=== PATIENT | male | born 1985 | race Caucasian/White ===

== ENCOUNTER 2019-03-08 23:29 | Emergency (ER) | payer OTHER ==
[2019-03-09] MEDS ORDERED: predniSONE 20 MG Tab PO ONE (00:28)
[2019-03-09] MEDS ORDERED: Naproxen 500 MG Tab PO ONE (00:28)
[2019-03-09] MEDS ORDERED: traMADol 50 MG Tab PO ONE (00:28)
[2019-03-09] MEDS ORDERED: Acetaminophen 325 MG Tab PO ONE (00:28)
--- NOTE | 2019-03-09 00:31 | EDM.PDOC ---
ED HPI GENERAL MEDICAL PROBLEM - General Chief Complaint: Back Pain or Injury Stated Complaint: RIGHT SIDE PAINFUL-HARD TO MOVE Time Seen by Provider: 03/09/19 00:04 Source of Information: Reports: Patient, RN Notes Reviewed - History of Present Illness INITIAL COMMENTS - FREE TEXT/NARRATIVE: 33-year-old male comes in with right neck and shoulder discomfort, he states this started yesterday and has gotten much worse this afternoon and evening. Not aware of any particular injury. He has never had anything of this nature before. The pain starts at the right base of his neck radiates to the right shoulder or right upper back worse with certain types of motion of his neck and arm. No fever or chills. No weakness numbness or tingling. Pain is mildly worse with deep inspiration. He has had some mild cough cold symptoms for the last several days. Right Upper Shoulder Pain Score (Numeric/FACES): 8 - Related Data Allergies Allergy/AdvReac Type Severity Reaction Status Date / Time No Known Allergies Allergy Verified 03/08/19 23:43 Home Meds: Home Meds Naproxen [Naprosyn] 500 mg PO Q12HR #14 tab 03/09/19 [Rx] predniSONE [Prednisone] 50 mg PO DAILY #5 tablet 03/09/19 [Rx] traMADol [Ultram] 50 mg PO Q8HR PRN #14 tab 03/09/19 [Rx] Past Medical History Respiratory History: Reports: Asthma, Pneumonia, Recurrent - Infectious Disease History Infectious Disease History: Reports: Chicken Pox - Past Surgical History GI Surgical History: Reports: Appendectomy Musculoskeletal Surgical History: Reports: Arthroscopic Knee Social & Family History - Tobacco Use Smoking Status *Q: Never Smoker - Caffeine Use Caffeine Use: Reports: Coffee, Tea - Recreational Drug Use Recreational Drug Use: No ED ROS GENERAL - Review of Systems Review Of Systems: See Below Constitutional: Denies: Fever, Chills HEENT: Reports: Rhinitis (Minimal for the last 2 or 3 days), Throat Pain ( Yesterday, now better) Respiratory: Reports: Pleuritic Chest Pain (Mild), Cough (Occasional). Denies: Shortness of Breath GI/Abdominal: Denies: Abdominal Pain, Nausea, Vomiting Musculoskeletal: Reports: Neck Pain (Base of right neck), Shoulder Pain, Back Pain (Right upper back) Neurological: Denies: Dizziness, Headache ED EXAM, UPPER BACK/NECK PAIN - Physical Exam Exam: See Below General Appearance: Alert, Mild Distress Ears Exam: Normal External Exam Throat/Mouth Exam: Normal Inspection, Normal Oropharynx Head Exam: Atraumatic. No: Facial Swelling Neck Exam: Tenderness (There is mild tenderness right base of neck, neck nontender posteriorly, no visible swelling, no warmth or erythema) Cardiovascular/Respiratory: Regular Rate, Rhythm, Normal Breath Sounds, No Respiratory Distress Back Exam: Other (Very mild tenderness right upper back, back is otherwise nontender) Extremities: Normal Inspection. No: Arm Pain (Right shoulder is nontender), Increased Warmth, Redness Neurologic: No Motor/Sensory Deficits Skin Exam: Normal Color, Warm/Dry, Other (No rash) Course - Vital Signs Last Recorded V/S: Last Vital Signs Temp 98.2 F 03/08/19 23:39 Pulse 78 03/08/19 23:39 Resp 20 03/08/19 23:39 BP 120/79 03/08/19 23:39 Pulse Ox 99 03/08/19 23:39 - Orders/Labs/Meds Orders: Active Orders 24 hr Category Date Time Status Chest 1V Frontal [CR] Stat Exams 03/09/19 00:05 Taken Meds: Medications Discontinued Medications Generic Name Dose Route Start Last Admin Trade Name Freq PRN Reason Stop Dose Admin Acetaminophen 975 mg 03/09/19 00:28 03/09/19 00:35 Tylenol PO 03/09/19 00:29 975 mg NOW ONE Administration Naproxen 500 mg 03/09/19 00:28 03/09/19 00:36 Naprosyn PO 03/09/19 00:29 500 mg ONETIME ONE Administration Prednisone 40 mg 03/09/19 00:28 03/09/19 00:36 Prednisone PO 03/09/19 00:29 40 mg ONETIME ONE Administration Tramadol HCl 50 mg 03/09/19 00:28 03/09/19 00:36 Ultram PO 03/09/19 00:29 50 mg ONETIME ONE Administration - Re-Assessments/Exams Free Text/Narrative Re-Assessment/Exam: 03/09/19 00:42 Chest x-ray is normal Departure - Departure Time of Disposition: 00:31 Disposition: Home, Self-Care 01 Condition: Fair Clinical Impression: Cervical radiculopathy - Discharge Information Prescriptions: traMADol [Ultram] 50 mg PO Q8HR PRN #14 tab PRN Reason: Pain Naproxen [Naprosyn] 500 mg PO Q12HR #14 tab predniSONE [Prednisone] 50 mg PO DAILY #5 tablet Referrals: PCP,Not In Area [Primary Care Provider] - Forms: ED Department Discharge Additional Instructions: Alternate ice and heat base of right neck and right upper back, Naprosyn 100 mg twice daily for 1 week, prednisone 50 mg every morning for the next 5 days, you may take Tylenol 1000 mg 3-4 times daily for extra pain relief as needed, tramadol 50 mg up to every 8 hours if needed for severe pain not relieved by above medications. Follow up with provider back home in 2-3 days if symptoms not much better. - My Orders Last 24 Hours: My Active Orders 03/09/19 00:05 Chest 1V Frontal [CR] Stat - Assessment/Plan Last 24 Hours: My Active Orders 03/09/19 00:05 Chest 1V Frontal [CR] Stat
--- NOTE | 2019-03-09 09:27 | CR ---
Chest: Frontal views of the chest was obtained. Comparison: No prior chest x-ray. Heart size and mediastinum are normal. Lungs are clear. Minimal scoliosis is noted. Impression: 1. Incidental finding. Nothing acute is seen. Diagnostic code #2
== END 2019-03-09 00:42 | disposition home or self-care (01) ==
LOC: JD.ED 23:29
DX: M54.12 Radiculopathy, cervical region (principal); Z79.899 Other long term (current) drug therapy
CPT/HCPCS: 71045; 99283; A9270